=== PATIENT | female | born 1955 | race Caucasian/White ===

== ENCOUNTER → 2018-04-24 16:04 | Outpatient (CLI) | payer OTHER, SELFPAY ==
--- NOTE | 2018-04-24 16:16 | EKG12_ITS ---
Test Reason : PRE OP Blood Pressure : / mmHG Vent. Rate : 070 BPM Atrial Rate : 070 BPM P-R Int : 180 ms QRS Dur : 090 ms QT Int : 414 ms P-R-T Axes : 062 059 055 degrees QTc Int : 447 ms Normal sinus rhythm Normal ECG Confirmed by BRUNILDA VILLASEÑOR, MUSA ([id number]), makeup editor QAMAR LUTZ ([id number] on 04/25/2018 10:28:00 AM Referred By: Yuan Nascimento Confirmed By:MUSA WORLEY MD
[2018-04-24 16:31] LABS: Hematocrit 42.8 % (37-47); Hemoglobin 13.5 g/dl (12.0-15.0); Mean Corp Hgb Conc 31.5 g/gl (32-36); Mean Corpuscular Hgb 28.7 pg (27.0-32.0); Mean Corpuscular Volume 91.1 fL (81-99); Mean Platelet Vol. 10.8 fl (6.2-12.0); Platelet Count 235 K/mm3 (150-450); RBC Distribution Width CV 12.9 % (11.6-14.6); RBC Distribution Width SD 42.9 fl (35.1-43.9); White Blood Count 7.8 K/mm3 (4.4-11.0)
[2018-04-24 16:32] LABS: Scan Indicated on CBC? Y/N NO
[2018-04-24 16:45] LABS: Anion Gap 5 (5-15); BUN 16 mg/dL (7-18); BUN/Creat Ratio 20.8 RATIO (10-20); Calcium,Total 9.2 mg/dL (8.5-10.1); Chloride 103 mmol/L (98-107); Creatinine, Serum 0.77 mg/dL (0.55-1.02); EST Glomerular Filtration Rate 80 mL/min (>60); Est Glom Filt Rate - Afr Amer 97 mL/min (>60); Glucose 98 mg/dL (74-106); Potassium 4.3 mmol/L (3.5-5.1); Sodium Level 142 mmol/L (136-145)
== END ==
PROVIDERS: Family Provider Internal Medicine; PCP Internal Medicine; Visit Provider Orthopaedic Surgery
DX: Z01.818 Encounter for other preprocedural examination (principal)
CPT/HCPCS: 36415; 80048; 85027; 93005

== ENCOUNTER → 2020-10-23 11:46 | Outpatient (CLI) | payer MEDICARE, OTHER, SELFPAY ==
--- NOTE | 2020-10-23 14:41 | NEURO_ITS ---
NCS and/or EMG Patient Report Ordering Doctor: Yuan Nascimento DATE OF SERVICE: 10/23/20 Indication: Approximately two years of intermittent numbness in both hands- worse during sleep. Pain in the left thenar eminence. Evaluate for median neuropathy at the wrist. Findings: Nerve conduction studies were performed in the right and left upper extremities. The right median motor study recording the abductor pollicis brevis showed a normal amplitude, normal distal latency and normal conduction velocity. The right ulnar motor study recording the abductor digiti minimi showed a normal amplitude, normal distal latency and normal conduction velocity. No conduction block or focal slowing was present across the elbow. The right median sensory response recording digit two showed a normal amplitude, latency and conduction velocity. The right ulnar sensory response recording digit five showed a normal amplitude, latency and conduction velocity. The right radial sensory response recording over the extensor snuff box showed a normal amplitude, latency and conduction velocity. The left median motor study recording the abductor pollicis brevis showed a normal amplitude, normal distal latency and normal conduction velocity. The left ulnar motor study recording the abductor digiti minimi showed a normal amplitude, normal distal latency and normal conduction velocity. No conduction block or focal slowing was present across the elbow. The left median sensory response recording digit two showed a normal amplitude, latency and conduction velocity. The left ulnar sensory response recording digit five showed a normal amplitude, latency and conduction velocity. The left radial sensory response recording over the extensor snuff box showed a normal amplitude, latency and conduction velocity. As routine median motor and sensory studies have a false negative rate of 25%, additional internal comparison studies were done to assess for possible median neuropathy at the wrist. These internal comparison studies (median vs. ulnar palmar mixed; median vs. ulnar sensory recording digit four; median vs. ulnar motor studies to the second lumbrical / interosseous; median vs. radial sensory studies recording digit one; median segmental sensory studies comparing the wrist-palm and palm-digit velocities) increase the electrodiagnostic sensitivity rate to 95%. However, due to statistical issues with multiple tests, it is required that at least two studies are abnormal to reduce the false positive rate to acceptable levels. Right median-ulnar lumbrical / interosseous motor latencies showed a normal median latency compared to the ulnar. Left median- ulnar lumbrical / interosseous motor latencies showed a normal median latency compared to the ulnar. Needle EMG of the right upper extremity muscles was performed. No denervation was seen in any muscle. All motor unit morphology, activation and recruitment patterns were normal. Needle EMG of the left abductor pollicis brevis muscle was performed. No denervation was seen. Motor unit morphology, activation and recruitment patterns were normal. Impression: This is a normal study. There is no electrophysiologic evidence of median neuropathy across the wrist on either side. In addition, there is no electrophysiologic evidence of cervical radiculopathy, brachial plexopathy or other entrapment neuropathy in the right upper extremity. Please note: electrodiagnostic testing is appropriately 95% sensitive in detecting median neuropathy across the wrist when multiple internal comparison studies are done, as was performed in this case. However, 5% of patients will have a false negative study. Presumably, in these patients, intermittent compression results in pain and paresthesias from ischemia, but without any fixed demyelination or axonal loss that can be demonstrated on electrodiagnostic studies. Thus, clinical correlation is required in the interpretation of this negative study. If indicated, a neuromuscular ultrasound of the carpal tunnel could be considered to look for signs of mechanical impingement. Bc Dimas D.O.
== END ==
PROVIDERS: PCP Internal Medicine; Visit Provider Orthopaedic Surgery
DX: R20.2 Paresthesia of skin (principal); M25.531 Pain in right wrist; M25.532 Pain in left wrist
CPT/HCPCS: 95885; 95886; 95913

== ENCOUNTER 2023-06-03 09:01 | Emergency (ER) | payer MEDICARE, OTHER, SELFPAY ==
[2023-06-03 09:03] VITALS: BP 190/87; PULSE 81; RESP 18; TEMP 35.7; O2SAT 96; BMI 35.9
--- NOTE | 2023-06-03 09:35 | EX.ED.DYSGE1 ---
HPI History of Present Illness Chief Complaint: General Illness Onset/Context/Timing Onset: Weeks (1) Context: Gradual Onset Timing: Continuous Quality: Sharp Location: Right scapular area with radiation to the right breast, right arm, and neck Worsened by: At night Relieved by: Ice Narrative Narrative: Patient presents with right upper back pain that radiates into her right arm and right breast. Patient states this began approximately 1 week ago. Patient states he is gradually gotten worse. Patient describes her pain as sharp. Patient states her pain is worse at night. Patient states ice seems to help with the pain. Patient states she saw her primary care physician and a general surgeon for this. Patient states she was told that there was nothing wrong and it was just soft tissue. Patient is concerned that this could be a sarcoma because her mother had a sarcoma with a similar symptoms. PFSH PFSH Medical History no medical history no medical history Home Medications calcium carbonate 600 mg-vitamin D3 20 mcg (800 unit) tablet (Caltrate with Vitamin D3) 2 tab PO DAILY@0800 09/19/13 [History Last Taken Unknown] ergocalciferol (vitamin D2) 1,250 mcg (50,000 unit) capsule (Vitamin D2) 50,000 unit PO QMONTH 09/19/13 [History Last Taken 09/29/14 07:00] lqkqbmql-jbi-rvclb acid 0.4 mg-lycopene 300 mcg-lutein 250 mcg tablet (Centrum Silver) 1 ea PO DAILY 09/19/13 [History Last Taken Unknown] venlafaxine 37.5 mg tablet 107.5 mg PO DAILY 09/17/14 [History Last Taken Unknown] fluticasone propionate 50 mcg/actuation nasal spray,suspension 1 spray BID 07/06/15 [History Last Taken Unknown] meloxicam 15 mg tablet (Mobic) 15 mg PO DAILY 07/06/15 [History Last Taken Unknown] jmybngsylofav-wsfzwbmbguilt-cwwacsxxnnp 5 mg-325 mg-200 mg tablet (Sudafed PE Hvbukjpj-Pxwz-Vskhn) 1 ea PO [id number] PRN Congestion #21 tabs 07/06/15 [Rx Last Taken Unknown] hydrocodone-acetaminophen 5-325mg 5mg-325mg 1 tab PO Q6H PRN PRN Pain 3 days #10 TABLETS 06/03/23 [Rx Last Taken Unknown] Allergy/AdvReac Type Severity Reaction Status Date / Time No Known Allergies Allergy Verified 07/06/15 19:16 Surgical History (Updated 06/03/23 @ 09:[address] Emmett Alicea DO) History of total bilateral knee replacement (TKR) Social History Smoking Status: Never smoker ROS ROS ED Constitutional Constitutional ED: Denies chills or fever(s) Eyes Eyes: Denies blurry vision or change in vision ENT ENT ED: Denies rhinorrhea or sore throat Cardiovascular Cardiovascular: Denies chest pain or palpitations Respiratory/Chest Respiratory/Chest: Denies cough or dyspnea Gastrointestinal Gastrointestinal: Denies nausea or vomiting Genitourinary Genitourinary ED: Denies dysuria or hematuria Musculoskeletal Musculoskeletal: Reports back pain and neck pain Integumentary Denies abscess or rash Neurologic Neurologic: Denies headache(s) or weakness Allergic/Immunologic Allergic/Immunologic ED: Denies mouth swelling or urticaria EXAM Physical Exam Const Vital Signs: 06/03/23 09:03 06/03/23 10:03 06/03/23 11:02 Temperature 96.2 F L Temperature Source Temporal Pulse Rate 81 Respiratory Rate 18 18 Respiratory Pattern Normal Blood Pressure 190/87 H Blood Pressure Mean 121 Pulse Ox 96 Oxygen Delivery Method Room Air Positive well nourished and well developed General Appearance ED: well developed and NAD HEENT Reports moist mucous membranes Neck supple and no JVD Resp normal respiratory effort and clear to auscultation bilaterally Cardio regular rate and regular rhythm GI normal to inspection, nondistended, normoactive bowel sounds and non-tender Palpation: soft Extremity normal to inspection Extremity Narrative: There is tenderness and spasm over the right supraspinatus muscle. There is mild tenderness over the right cervical paraspinal muscles. There is no bony crepitance or step-off. There is good range of motion of the cervical spine and right shoulder. Radial pulses are equal bilaterally. Strength is 5/5 bilateral in the upper extremities. There are no sensory deficits. General Extremety ED: Yes tenderness; Negative for edema General Extremity: Negative for edema Neuro oriented x3, CN's II-XII intact bilaterally and no sensory deficits noted Sensorium / Orientation: alert Motor Exam: strength 5/5 throughout Psych mental status grossly normal Skin no rashes or lesions noted MDM MDM MDM Narrative Medical decision making narrative: Differential diagnosis includes musculoskeletal pain, pulmonary embolism, pneumothorax, and cervical radiculopathy. CTA of the chest will be obtained to assess for pulmonary embolism. CT scan of the cervical spine will be obtained to assess for cervical radiculopathy. CBC will be obtained to assess for leukocytosis and anemia. Basic metabolic profile will be obtained to assess for electrolyte abnormality and renal function. Lab Data Attestation: I reviewed the patient's lab results. Lab results narrative: BC was reviewed and was within normal limits. Basic metabolic profile was reviewed and was essentially within normal limits. Labs: Laboratory Results - last 24 hr 06/03/23 09:56 WBC 5.0 RBC 5.11 Hgb 14.8 Hct 47.1 H MCV 92.2 MCH 29.0 MCHC 31.4 L RDW Std Deviation 41.9 RDW Coeff of Romana 12.4 Plt Count 231 MPV 10.5 Immature Gran % (Auto) 0.200 Neut % (Auto) 52.9 Lymph % (Auto) 33.9 [place] % (Auto) 8.8 Eos % (Auto) 2.8 Baso % (Auto) 1.4 H Absolute Neuts (auto) 2.7 Absolute Lymphs (auto) 1.70 Nucleated RBC % 0 Sodium 138 Potassium 4.3 Chloride 107 Carbon Dioxide 31.0 Anion Gap 0 L BUN 19 H Creatinine 0.79 Estim Creat Clear Calc 45.16 Est GFR (MDRD) Af Amer 93 Est GFR (MDRD) Non-Af 77 BUN/Creatinine Ratio 24.0 H Glucose 111 H Calcium 9.4 Radiography Diagnostic Testing: Clinical Impression(s) from Imaging Studies Chest CTA 06/03/23 09:41 IMPRESSION: Normal CTA chest examination, without a demonstrated pulmonary embolism or arterial dissection. Electronically Signed: Meng Gaming MD at 11:15 EDT , Cervical Spine CT 06/03/23 10:37 IMPRESSION: Multilevel degenerative changes, as described above. Electronically Signed: Meng Gaming MD at 11:22 EDT , CT scan of the cervical spine was obtained. There are multilevel degenerative changes. There is foraminal stenosis. There is no acute fracture or spondylolisthesis. This was interpreted by the radiologist and was also independently reviewed by myself. CTA of the chest was obtained. There is no pulmonary embolism or aortic dissection. There is no mass noted. This was interpreted by the radiologist and was also independently reviewed by myself. Treatment and Re-Evaluation :: Patient was given injection of morphine. Patient felt better on reevaluation. Patient was advised of her findings. Patient was given a prescription for a short course of [place]. Patient was instructed to use ice to the area. Patient was instructed to follow-up with her primary care physician in 5 to 7 days. Patient understood and was agreeable with the plan. All questions were answered. Discharge Plan Triage Chief Complaint: General Illness ED Provider: Emmett Alicea Dx/Rx/DC Orders Clinical Impression: Cervical radiculopathy, Muscle strain of left shoulder region Instructions: ED Radiculopathy, Cervical, ED Muscle Strain, Extremity Prescriptions: New hydrocodone-acetaminophen [hydrocodone-acetaminophen] 5-325 mg tablet 1 tab PO Q6H PRN PRN (Reason: Pain) 3 Days Qty: 10 0RF No Action ergocalciferol (vitamin D2) [Vitamin D2] 50,000 UNIT capsule 50,000 unit PO QMONTH Patient Comments: supplement TAKES 2 TIMES PER MONTH krfhfqqd-ccx-LY-lycopen-lutein [Centrum Silver] 1 EACH tablet 1 ea PO DAILY Patient Comments: supplement calcium carbonate-vitamin D3 [Caltrate with Vitamin D3] 1 TAB tablet 2 tab PO DAILY@0800 Patient Comments: supplement venlafaxine 37.5 MG tablet 107.5 mg PO DAILY Patient Comments: mood meloxicam [Mobic] 15 MG tablet 15 mg PO DAILY fluticasone propionate 1 SPRAY spray,suspension 1 spray NASAL BID csjubgszoagqg-naychkcisdles-XE [Sudafed PE Pldrkkou-Evhc-Cewqr] 1 EACH tablet 1 ea PO [id number] PRN (Reason: Congestion) Qty: 21 0RF Primary Care Provider: Stephanie Macdonald Referrals: Stephanie Macdonald MD [Primary Care Provider] - 5-7 Days George Louis MD [Med Staff - Alternative Dispute Resolution Mediator] - Disposition Disposition: Home, Self Care
--- NOTE | 2023-06-03 09:41 | CT_ITS ---
STUDY: CTA CHEST REASON FOR EXAM: Female, 67 years old. Pulmonary embolism RADIATION DOSAGE (If Supplied By Facility): CTDIvol = ( 12.42 ) mGy, DLP = ( 356.28 ) mGycm TECHNIQUE: The examination was performed with the intravenous administration of IV 100mL Isovue-370. Post-processing of the angiographic images was performed, with multiplanar reformation and 3D reconstruction. Individualized dose optimization techniques were used for this CT. COMPARISON: July 24, 2015 FINDINGS: Normal enhancement of the main pulmonary artery and right and left pulmonary arteries. Normal enhancement of the bilateral peripheral pulmonary arteries. There is no demonstrated pulmonary embolism. Normal thoracic aorta and visualized great vessels. There is no demonstrated aortic dissection. Normal heart and pericardium. Normal mediastinum. Normal hilar regions. Normal visualized trachea and bronchi. The lungs are well expanded. Normal pulmonary parenchyma. Normal pleura. Normal chest wall structures. There is thoracic dextro scoliosis with degenerative change of the spine. Normal visualized upper abdomen. There is stable hypodensity with probable cyst in the liver. CT/CTA Chest W/WO Contrast IMPRESSION: Normal CTA chest examination, without a demonstrated pulmonary embolism or arterial dissection. Electronically Signed: Meng Gaming MD at 11:15 EDT ,
[2023-06-03] MEDS: Morphine 4 MG/ML Syringe IV (09:53)
[2023-06-03] MEDS: 0.9% Normal Saline (1000mL) 1,000 ML 1000 ML IV (09:53)
[2023-06-03] MEDS: Ondansetron 4 MG/2 ML Vial IV (09:53)
[2023-06-03 10:08] LABS: Absolute Neutrophil Count 2.7 X10^3/uL (2.0-7.7); Basophil# 0.07 X10^3/uL; Basophil% 1.4 % (0-1); Eosinophil# 0.14 X10^3/uL; Eosinophils% 2.8 % (0-5); Hematocrit 47.1 % (37-47); Hemoglobin 14.8 g/dL (12.0-15.0); Lymphocyte % 33.9 % (19-41); Mean Corp Hgb Conc 31.4 g/dL (32-36); Mean Corpuscular Volume 92.2 fL (81-99); Mean Platelet Vol. 10.5 fl (6.2-12.0); Monocyte# 0.44 X10^3/uL; Monocyte% 8.8 % (0-10); NRBC Flagged by Analyzer 0 % (0-5); Neutrophil # 2.65 X10^3/uL (2.7-7.7); Neutrophil % 52.9 % (47-70); Platelet Count 231 K/mm3 (150-450); RBC Distribution Width CV 12.4 % (11.6-14.6); RBC Distribution Width SD 41.9 fl (35.1-43.9); Red Blood Count 5.11 M/mm3 (4.2-5.4)
[2023-06-03 10:19] LABS: Anion Gap 0 (5-15); BUN 19 mg/dL (7-18); Calcium,Total 9.4 mg/dL (8.5-10.1); Chloride 107 mmol/L (98-107); Creatinine, Serum 0.79 mg/dL (0.55-1.02); EST Glomerular Filtration Rate 77 mL/min (>60); Est Glom Filt Rate - Afr Amer 93 mL/min (>60); Estimated Creatinine Clearance 45.16 ml/min; Glucose 111 mg/dL (74-106); Potassium 4.3 mmol/L (3.5-5.1); Sodium Level 138 mmol/L (136-145)
--- NOTE | 2023-06-03 10:37 | CT_ITS ---
STUDY: CT CERVICAL SPINE WITHOUT CONTRAST REASON FOR EXAM: Female, 67 years old. Injury/Pain RADIATION DOSAGE (If Supplied By Facility): CTDIvol = ( 20.74 ) mGy, DLP = ( 415.54 ) mGycm TECHNIQUE: High resolution transaxial imaging was performed without contrast material. Sagittal and coronal images were reconstructed. Individualized dose optimization techniques were used for this CT. COMPARISON: None FINDINGS: Normal craniovertebral junction. There are degenerative changes of the anterior atlantoaxial articulation. Normal odontoid process. There is reversal of the normal cervical lordosis. There is no acute fracture. Normal vertebral bodies and posterior osseous elements. C2-3: Normal endplates. Normal disc height and morphology. Normal central canal and intervertebral neuroforamina. C3-4: Disc space narrowing. Disc bulge and spurring. Moderate canal stenosis. Left greater than right foraminal narrowing C4-5: Disc space narrowing with endplate change. Disc bulge and spurring. Moderate canal stenosis. Left greater than right foraminal narrowing. C5-6: Disc space narrowing with endplate changes. Disc bulge and spurring. Mild canal stenosis. Right greater than left foraminal narrowing. C6-7: Disc space narrowing. Disc bulge and spurring. Mild canal stenosis. Mild right foraminal narrowing. C7-T1: Normal endplates. Normal disc height and morphology. There is mild facet spurring. Normal central canal and intervertebral neuroforamina. Normal visualized soft tissue structures. CT/Spine Cervical without Contras IMPRESSION: Multilevel degenerative changes, as described above. Electronically Signed: Meng Gaming MD at 11:22 EDT ,
[2023-06-03 11:02] VITALS: RESP 18
== END 2023-06-03 11:48 | disposition home or self-care (01) ==
PROVIDERS: Emergency Provider Emergency Medicine; PCP Internal Medicine; Visit Provider Emergency Medicine
DX: S46.912A Strain of unspecified muscle, fascia and tendon at shoulder and upper arm level, left arm, initial encounter (principal); M47.22 Other spondylosis with radiculopathy, cervical region; M54.9 Dorsalgia, unspecified; X58.XXXA Exposure to other specified factors, initial encounter
CPT/HCPCS: 71275; 72125; 80048; 85025; 96361; 96374; 96375; 99284; J7030; Q9967; A4216; J2405